=== PATIENT | female | born 1985 | race Two or more races ===

== ENCOUNTER 2016-06-12 16:04 | Inpatient (IN) | payer BC ==
[~2016-06-12] VITALS: Ht 157.5 cm; Wt 94.5 kg
[~2016-06-12 16:04] MED LIST: AMOX MC; NITR-58 PO; PREN1TAB17 PO; PREN1TAB9 PO
[2016-06-12] MEDS ORDERED: ONDANSETRON 4 MG INJ IV STA (16:25)
[2016-06-12] MEDS ORDERED: morphine 4 MG/ML VIAL IV STA (16:25)
[2016-06-12] MEDS ORDERED: ACETAMINOPHEN 500 MG TAB PO STA (16:25)
[2016-06-12] MEDS ORDERED: SOD CHLORIDE 0.9% 1,000 ML IV STA (16:25)
[2016-06-12 16:48] LABS: ADD UMIC YES; URINE BILIRUBIN (Dip) NEGATIVE (NEGATIVE); URINE BLOOD (Dip) 2+ (NEGATIVE); URINE COLOR LT. YELLOW (YELLOW); URINE GLUCOSE (Dip) NEGATIVE (NEGATIVE); URINE KETONES (Dip) NEGATIVE (NEGATIVE); URINE LEUKOCYTE ESTERASE (Dip) NEGATIVE (NEGATIVE); URINE NITRITE (Dip) NEGATIVE (NEGATIVE); URINE TOTAL PROTEIN (Dip) TRACE (NEGATIVE); URINE UROBILINOGEN (Dip) 0.2 E.U./dL (0.1-1.0)
[2016-06-12 17:02] LABS: MUCUS,URINE FEW; SQUAMOUS EPITHELIAL CELL,UR MODERATE; URINE RBCS 0-2 /HPF (0)
[2016-06-12 17:06] LABS: ADD SCAN DIFF NO
[2016-06-12 17:07] LABS: ABNORMAL IP MESSAGE 1; HEMATOCRIT 44.3 % (37.0-47.0); HEMOGLOBIN 15.3 g/dl (12.0-16.0); MEAN CORPUSCULAR HEMOGLOBIN 29.1 pg (29.0-33.0); MEAN CORPUSCULAR HGB CONC 34.5 g/dl (32.0-37.0); MEAN CORPUSCULAR VOLUME 84.2 fl (82.0-101.0); MEAN PLATELET VOLUME 11.4 fl (7.4-10.4); PLATELET COUNT 290 10^3/UL (140-415); RED BLOOD COUNT 5.26 10^6/ul (4.20-5.40); RED CELL DISTRIBUTION WIDTH 12.8 % (11.5-14.5)
[2016-06-12 17:18] LABS: ALBUMIN 4.5 g/dl (3.3-4.9)
[2016-06-12 17:19] LABS: POTASSIUM 4.4 mmol/L (3.5-5.1)
[2016-06-12 17:21] LABS: ALBUMIN/GLOBULIN RATIO 1.02; BILIRUBIN,INDIRECT 0.4 mg/dl (0-1.1); BILIRUBIN,TOTAL 0.4 mg/dl (0.2-1.3); CREATININE 0.66 mg/dl (0.44-1.00); TOTAL PROTEIN 8.9 g/dl (6.1-8.1)
[2016-06-12 17:22] LABS: CALCIUM 9.8 mg/dl (8.4-10.2)
--- NOTE | 2016-06-12 17:27 | ERD ---
ER Documentation Chief Complaint Date/Time DATE: 06/12/16 TIME: 17:25 Chief Complaint RIGHT SIDED AP WITH NAUSEA/VOMITING AND BACK PAIN X 1 WEEK HPI This is a 31-year-old female presenting to the emergency department complaining of severe right upper quadrant abdominal pain that radiates to the back since this morning, patient describes the pain as a twisting severe pain. Patient complains of nausea, with one episode of vomiting. She admits to having chills. She denies any diarrhea. Patient states that her last meal was at 1 PM however she vomited. Patient denies any medical problems or taking any other medications. She denies any abdominal surgeries. She states her last menstrual period was a couple weeks ago. Denies alcohol use. Denies any recent traveling. ROS All systems reviewed and are negative except as per history of present illness. Medications Home Meds Reported Medications Vits W-Ca,Fe,Fa(<1MG) ( #2) 1 Tab Tablet, 1 TAB PO DAILY 06/25/13 Amoxicillin Trihydrate (Amoxicillin Trihydrate) 100 Gm Powder, 100 GM MC Q6 06/25/13 Nitrofurantoin Monohyd Macrocr (Macrobid) 100 Mg Capsr, 100 MG PO BID 06/25/13 Vit-Iron Fumarate-FA ( Tablet) 1 Each Tablet, 1 EACH PO DAILY 01/02/13 Allergies Allergies: Coded Allergies: No Known Drug Allergies (Verified Allergy, Unknown, 06/12/16) Uncoded Allergies: BEEF (Allergy, Unknown, 06/12/16) SHRIMP (Allergy, Unknown, 06/12/16) PMhx/Soc History of Surgery: No Anesthesia Reaction: No Hx Neurological Disorder: No Hx Respiratory Disorders: No Hx Cardiac Disorders: No Hx Psychiatric Problems: No Hx Miscellaneous Medical Probl: No Hx Alcohol Use: No Hx Substance Use: No Hx Tobacco Use: No Smoking Status: Never smoker Physical Exam Vitals Vital Signs Date Time Temp Pulse Resp B/P Pulse Ox O2 Delivery O2 Flow Rate FiO2 06/12/16 16:09 100.0 104 20 123/77 100 Physical Exam GENERAL: well-developed/well-nourished, in no apparent distress, non-toxic appearing HENT: NC/AT, moist mucous membranes EYES: Conjunctiva normal NECK: Supple, no lymphadenopathy PULM: CTA bilaterally, no rales, rhonchi, or wheezing heard CV: Normal S1S2, RRR, good capillary refill GI: Soft, non-distended, tender to palpation right upper quadrant and epigastric region Normal bowel sounds, no masses or organomegaly felt on exam No gross peritonitis, no bruits Negative Rovsing, positive Ayers, negative McBurney's point, Negative CVAT BACK: No masses EXT: No clubbing, cyanosis, or edema NEURO: Alert and Orientated SKIN: Intact, normal turgor PSYCH: Normal mood and mentation Result Diagram: 06/12/16 1640 06/12/16 1640 Results 24 hrs Laboratory Tests Test 06/12/16 16:30 06/12/16 16:40 Urine Bilirubin NEGATIVE Urine Clarity CLEAR Urine Color LT. YELLOW Urine Glucose NEGATIVE% Urine Granular Casts RARE Urine Hemoglobin 2+ Urine Ketones NEGATIVE Urine Leukocyte Esterase NEGATIVE Urine Microscopic RBC 0-2/HPF Urine Microscopic WBC 0-2/HPF Urine Mucus FEW Urine Nitrite NEGATIVE Urine Specific [place] 1.025 Urine Squamous Epithelial Cells MODERATE Urine Total Protein TRACE Urine Urobilinogen 0.2 E.U./dL Urine pH 5.5 Alanine Aminotransferase (ALT/SGPT) 35IU/L Albumin 4.5g/dl Albumin/Globulin Ratio 1.02 Alkaline Phosphatase 117IU/L Anion Gap 20 Aspartate Amino Transf (AST/SGOT) 24IU/L Blood Urea Nitrogen 15mg/dl Calcium Level 9.8mg/dl Carbon Dioxide Level 26mmol/L Chloride Level 101mmol/L Creatinine 0.66mg/dl Direct Bilirubin 0.00mg/dl Globulin 4.40g/dl Glucose Level 98mg/dl Hematocrit 44.3% Hemoglobin 15.3g/dl Indirect Bilirubin 0.4mg/dl Lactic Acid Level 1.2mmol/L Lipase 96148V/L Mean Corpuscular Hemoglobin 29.1pg Mean Corpuscular Hemoglobin Concent 34.5g/dl Mean Corpuscular Volume 84.2fl Mean Platelet Volume 11.4fl Platelet Count 60913^3/UL Potassium Level 4.4mmol/L Red Blood Count 5.2610^6/ul Red Cell Distribution Width 12.8% Sodium Level 143mmol/L Total Bilirubin 0.4mg/dl Total Protein 8.9g/dl White Blood Count 17.010^3/ul Current Medications Medications (Trade) Dose Ordered Sig/Levon Route PRN Reason Start Time Stop Time Status Last Admin Dose Admin Sodium Chloride (NS) 1,000 ml @ 1,000 mls/hr Q1H STAT IV 06/12/16 16:25 06/12/16 17:24 DC 06/12/16 16:39 Morphine Sulfate (morphine) 6 mg ONCE STAT IV 06/12/16 16:25 06/12/16 16:28 DC 06/12/16 16:40 Ondansetron HCl (Zofran Inj) 8 mg ONCE STAT IV 06/12/16 16:25 06/12/16 16:28 DC 06/12/16 16:40 Acetaminophen (Tylenol Tab) 1,000 mg ONCE STAT PO 06/12/16 16:25 06/12/16 16:28 DC 06/12/16 16:39 Hydromorphone HCl 2 mg 2 mg ONCE STAT IV 06/12/16 18:13 06/12/16 18:15 DC Sodium Chloride (NS) 1,000 ml @ 1,000 mls/hr Q1H ONCE IV 06/12/16 18:30 06/12/16 19:29 Hydromorphone HCl (Dilaudid) 0.5 mg ONCE STAT IV 06/12/16 18:15 06/12/16 18:17 DC Procedures/MDM This is a 31-year-old female presenting to the emergency department complaining of severe right upper quadrant abdominal pain that radiates to the back, nausea with one episode of vomiting since this morning due to acute pancreatitis. On examination patient was very tender and she had a temperature of 100.0. IV access was established. CBC showed a white count of 17 likely due to stress reaction versus an infectious cause. CMP did not show any liver or renal abnormalities. Lipase is elevated at 38,681 signifying that patient has pancreatitis. A gallbladder ultrasound was done and did not show any evidence of cholelithiasis or cholecystitis. Patient was given 1000 mg of Tylenol, 6 mg of morphine and 8 mg Zofran and I have reassessed her. Patient still had significant pain. Patient has stable vital signs. Patient is appropriate for admission for further evaluation and management. I consulted my supervising physician Dr. Brady who contacted hospitalist and further manage patient until admission. Please review Dr. Brady's note for further information. Departure Diagnosis: Primary Impression: Pancreatitis Condition: Serious PAULINE SALAZAR PA-C 1, 2017 17:27
--- NOTE | 2016-06-12 17:29 | RADRPT ---
PROCEDURE: Abdominal Ultrasound (right upper quadrant). CLINICAL INDICATION: Abdominal pain TECHNIQUE: Multiple real-time longitudinal and transverse images of the right upper quadrant of th e abdomen were acquired utilizing a curved array transducer. Images were reviewed on a high-resoluti on PACS workstation. COMPARISON: None FINDINGS: The liver is normal in size and echogenicity. The portal vein is patent. No focal masses are identi fied. There is no evidence of intra or extrahepatic ductal dilatation. The common bile duct measur es 3.2 mm in diameter. No gallstones or gallbladder wall thickening is seen. The visualized portions of the pancreas are unremarkable with obscuration of the tail of the pancrea s. No free fluid is identified. There is no evidence of right hydronephrosis or renal calcification. The right kidney measures 9.2 cm in length. The visualized portions of the aorta and inferior vena cava are within normal limits. IMPRESSION: 1. Unremarkable right upper quadrant ultrasound. RPTAT: HJBF .Cisco Vidal MD, MD Date Time Electronically viewed and signed by .Cisco Vidal MD, MD on 06/12/2016 17:29 .B/
[2016-06-12] MEDS ORDERED: HYDROmorphONE 2 MG/ML SYG IV STA (18:13)
[2016-06-12] MEDS ORDERED: HYDROmorphONE 1 MG/ML SYG IV STA (18:15)
[2016-06-12] MEDS ORDERED: SOD CHLORIDE 0.9% 1,000 ML IV ONE (18:30)
[2016-06-12 18:43] LABS: EOSINOPHILS # 0.3 10^3/ul (0.0-0.5); LYMPHOCYTES # 1.7 10^3/ul (0.8-2.9); MONOCYTE # 1.2 10^3/ul (0.3-0.9); NEUTROPHIL # 13.4 10^3/ul (1.6-7.5)
[2016-06-12 18:46] LABS: ANISOCYTOSIS OCCASIONAL; PLATELET ESTIMATE PLT APPEAR ADEQUATE
[2016-06-12 19:48] VITALS: TEMP 98
--- NOTE | 2016-06-12 19:57 | RADRPT ---
PROCEDURE: CT Abdomen and Pelvis without contrast. CLINICAL INDICATION: Pancreatitis TECHNIQUE: CT scan of the abdomen and pelvis without contrast was performed on a multidetector hig h-resolution CT scanner. The patient was scanned without intravenous contrast. No oral contrast was administered. Coronal and sagittal reformatted images were obtained from the axial source images. Im ages were reviewed on a high-resolution PACS workstation. The total exam CTDI equals 20.06 mGy and the total exam DLP equals 1250.33 mGy-cm. One or more of the following dose reduction techniques were used: - Automated exposure control. - Adjustment of the mA and/or kV according to patient size. - Use of iterative reconstruction technique. COMPARISON: Right upper quadrant abdominal ultrasound of 06/12/2016 FINDINGS: Lungs: Dependent atelectasis is seen in the posterior lower lungs. Small calcified granuloma in ri ght lower lung lobe. Liver: Small calcified granulomas in liver Gallbladder: No abnormality seen. Spleen: No abnormality seen. Stomach: The stomach is not fully distended. No gross abnormality seen. Pancreas: No abnormality seen in the unopacified pancreas. Adrenals: No abnormality seen. Kidneys: Appearance of 1 mm nonobstructing calcification in mid right kidney. No abnormality seen in the left kidney. Abdominal aorta: No aneurysm seen. Lymph nodes: No enlarged lymph nodes are seen. Small bowel: No dilated small bowel loops are seen. Colon: No abnormality seen. Appendix: No abnormality seen. Bladder: No abnormality seen Pelvic organs: No abnormality seen Ascites: None seen. Osseous structures: Likely small bone island in right femoral head. Minimal degenerative changes a t sacroiliac joints. IMPRESSION: No acute abnormality seen as noted above. Appearance of 1 mm nonobstructing calcification in mid ri ght kidney. Please see above. RPTAT: HJES .Uvaldo Loaiza MD, MD Date Time Electronically viewed and signed by .Uvaldo Loaiza MD, MD on 06/12/2016 19:57 .S/
[2016-06-12] MEDS ORDERED: ACETAMINOPHEN 325 MG TAB PO PRN (20:00)
[2016-06-12] MEDS ORDERED: ONDANSETRON 4 MG INJ IV PRN ×2 (20:00→23:00)
[2016-06-12 21:00] VITALS: Ht 157.5 cm; Wt 94.5 kg
[2016-06-12] MEDS ORDERED: KETOROLAC 15 MG INJ IV PRN (23:00)
[2016-06-12] MEDS: DEXTROSE 5%-0.45% NACL 1,000 ML IV SCH (23:21)
[2016-06-13] MEDS: morphine 4 MG/ML VIAL IV PRN ×2 (03:31→08:25)
[2016-06-13 05:06] LABS: ADD SCAN DIFF NO
[2016-06-13 05:35] LABS: BASOPHILS % 0.3 % (0.0-2.0); EOSINOPHILS # 1.1 10^3/ul (0.0-0.5); EOSINOPHILS % 9.9 % (0.0-7.0); HEMATOCRIT 37.7 % (37.0-47.0); HEMOGLOBIN 12.7 g/dl (12.0-16.0); LYMPHOCYTES # 3.1 10^3/ul (0.8-2.9); LYMPHOCYTES % 27.8 % (15.0-51.0); MEAN CORPUSCULAR HEMOGLOBIN 29.1 pg (29.0-33.0); MEAN CORPUSCULAR HGB CONC 33.7 g/dl (32.0-37.0); MEAN CORPUSCULAR VOLUME 86.3 fl (82.0-101.0); MEAN PLATELET VOLUME 11.3 fl (7.4-10.4); MONOCYTE # 0.8 10^3/ul (0.3-0.9); MONOCYTES % 7.1 % (0.0-11.0); NEUTROPHILS % 54.6 % (39.0-77.0); PLATELET COUNT 232 10^3/UL (140-415); RED BLOOD COUNT 4.37 10^6/ul (4.20-5.40); RED CELL DISTRIBUTION WIDTH 13.2 % (11.5-14.5)
[2016-06-13 05:36] LABS: ALBUMIN 3.3 g/dl (3.3-4.9)
[2016-06-13 05:39] LABS: ALBUMIN/GLOBULIN RATIO 0.89; BILIRUBIN,INDIRECT 0.3 mg/dl (0-1.1); BILIRUBIN,TOTAL 0.3 mg/dl (0.2-1.3); CREATININE 0.49 mg/dl (0.44-1.00)
[2016-06-13 05:40] LABS: CALCIUM 7.9 mg/dl (8.4-10.2); MAGNESIUM 2.2 mg/dl (1.7-2.5); PHOSPHORUS 2.7 mg/dl (2.5-4.9)
--- NOTE | 2016-06-13 08:00 | HP ---
DATE OF ADMISSION: 06/12/2016 TIME SEEN: 2300. CHIEF COMPLAINT: Abdominal pain. HISTORY OF PRESENT ILLNESS: The patient is a 31-year-old obese female with no significant past medi luis fernando history who presented to the emergency department with a chief complaint of abdominal pain. The pain is mainly located in the right upper quadrant area with radiation to her back. She also repor svitlana associated nonbilious, nonbloody emesis. Her symptoms have been going on for several days and h ave been progressively getting worse. She stated abdominal pain is worse with p.o. intake. When she presented to the ER, she had a white count of 17,000 and a lipase of almost 39,000. She morton d a low-grade fever with a temperature of 100, tachycardic with a heart rate of 104. Otherwise, the rest of her vitals were within acceptable range. Right upper quadrant ultrasound was unremarkable. A CT abdomen and pelvis without contrast shows no acute abnormality except an appearance of 1 mm n onobstructing calcification in the mid right kidney. She has been given pain medication, antiemetic s, and IV fluid and admitted for further treatment. REVIEW OF SYSTEMS: A 12-point review was performed, negative except as mentioned in HPI. PAST MEDICAL HISTORY: As per HPI. PAST SURGICAL HISTORY: D and C (dilatation and curettage). SOCIAL HISTORY: No history of tobacco, alcohol, or illicit drug use. ALLERGIES: SHRIMP, BEEF. HOME MEDICATIONS: None. PHYSICAL EXAMINATION: VITAL SIGNS: Blood pressure 104/57, heart rate 103, respiratory rate 16, temperature 98, oxygen sat uration 100% on room air. GENERAL: White female lying in bed in no acute distress, answering questions appropriately, able to speak in full sentences. HEENT: No obvious head deformity. Pupils are reactive to light. Extraocular muscles intact. CARDIOVASCULAR: Bradycardic with regular rhythm. LUNGS: Clear. ABDOMEN: Soft. There is tenderness to palpation in the right upper quadrant area as well as the pe riumbilical area with no guarding, no rigidity. EXTREMITIES: No edema. NEUROLOGIC: No focal deficit. LABORATORY: Pertinent positive results as mentioned in the HPI. IMAGING: Right upper quadrant ultrasound and CT abdomen and pelvis without contrast with results as mentioned in the HPI. IMPRESSION: 1. Acute pancreatitis, unknown etiology. 2. Abdominal pain, secondary to above. 3. Sepsis, as evidenced by leukocytosis and tachycardia, secondary to acute pancreatitis. 4. Obesity with a BMI of 38. PLAN: We will keep n.p.o. with IV fluid. We will provide pain medication and antiemetics as needed . We will consider starting her on antibiotics if no improvement in her symptoms or if there is a l aboratory abnormality or if she becomes febrile. Will check fasting lipids to see if elevated trigl ycerides is the etiology of her pancreatitis. Note that abdominal ultrasound and CT scan without an y biliary tree/gallbladder abnormality, and she does not drink alcohol. If her triglyceride level i s within normal limits, we will consider checking her IgG type 4 to see if autoimmune pancreatitis i s a possible etiology. This can also be done as an outpatient. Further workup and management per clinical course. Dictated By: MARCEL CELAYA/OLIVA Conf#: [id number] DID#: [id number]
[2016-06-13 08:12] VITALS: BP 112/58; PULSE 87; RESP 18
[2016-06-13] MEDS: FAMOTIDINE 20 MG INJ IV SCH ×2 (08:22→20:20)
[2016-06-13] MEDS: DEXTROSE 5%-0.45% NACL 1,000 ML IV SCH ×2 (08:22→18:57)
--- NOTE | 2016-06-13 15:18 | PN ---
Date/Time of Note Date/Time of Note DATE: 06/13/16 TIME: 15:12 Assessment/Plan VTE Prophylaxis VTE Prophylaxis Intervention: SCD's Lines/Catheters IV Catheter Type (from Nrsg): Peripheral IV Assessment/Plan Chief Complaint/Hosp Course 1. Acute pancreatitis- Idiopathic at this time -MRCP to further eval -GI consult 2. SIRS likely 05/16 #1-Improved -monitor 3. Obesity with a BMI of 38 -Advise Lifestyle changes PPx- SCD's Problems: Subjective 24 Hr Interval Summary Gastrointestinal: pain Exam/Review of Systems Vital Signs Vitals Vital Signs Date Time Temp Pulse Resp B/P Pulse Ox O2 Delivery O2 Flow Rate FiO2 06/13/16 08:12 97.6 87 18 112/58 100 Room Air Intake and Output 06/12/16 06/12/16 06/13/16 15:00 23:00 07:00 Intake Total 1000 ml 650 ml Balance 1000 ml 650 ml Exam Constitutional: alert, oriented Respiratory: clear to auscultation Cardiovascular: regular rate and rhythm Gastrointestinal: soft, tender, No distended Musculoskeletal: nl extremities to inspection Results Result Diagram: 06/13/16 0435 06/13/16 0435 Results 24 hrs Laboratory Tests Test 06/12/16 16:30 06/12/16 16:40 06/13/16 04:35 Urine Bilirubin NEGATIVE Urine Clarity CLEAR Urine Color LT. YELLOW Urine Glucose NEGATIVE Urine Granular Casts RARE Urine Hemoglobin 2+ H Urine Ketones NEGATIVE Urine Leukocyte Esterase NEGATIVE Urine Microscopic RBC 0-2 Urine Microscopic WBC 0-2 Urine Mucus FEW Urine Nitrite NEGATIVE Urine Specific [place] 1.025 Urine Squamous Epithelial Cells MODERATE Urine Total Protein TRACE Urine Urobilinogen 0.2 E.U./dL Urine pH 5.5 Alanine Aminotransferase (ALT/SGPT) 35 34 Albumin 4.5 3.3 # Albumin/Globulin Ratio 1.02 0.89 Alkaline Phosphatase 117 74 Anion Gap 20 H 15 Anisocytosis OCCASIONAL Aspartate Amino Transf (AST/SGOT) 24 15 Band Neutrophils % 2.0 Beta HCG, Quantitative < 2.4 Blood Urea Nitrogen 15 12 Calcium Level 9.8 7.9 L Carbon Dioxide Level 26 25 Chloride Level 101 107 Creatinine 0.66 0.49 Direct Bilirubin 0.00 0.00 Eosinophils # 0.3 1.1 H Eosinophils % 2.0 9.9 H Globulin 4.40 H 3.70 H Glucose Level 98 108 Hematocrit 44.3 37.7 Hemoglobin 15.3 12.7 Indirect Bilirubin 0.4 0.3 Lactic Acid Level 1.2 Lipase 32708 H Lymphocytes # 1.7 3.1 H Lymphocytes % 10.0 L 27.8 Mean Corpuscular Hemoglobin 29.1 29.1 Mean Corpuscular Hemoglobin Concent 34.5 33.7 Mean Corpuscular Volume 84.2 86.3 Mean Platelet Volume 11.4 H 11.3 H Monocytes # 1.2 H 0.8 Monocytes % 7.0 7.1 Neutrophils # 13.4 H 6.0 Neutrophils % 79.0 H 54.6 Platelet Count 290 232 Platelet Estimate PLT APPEAR ADEQUATE Potassium Level 4.4 4.0 Red Blood Count 5.26 4.37 Red Cell Distribution Width 12.8 13.2 Sodium Level 143 143 Total Bilirubin 0.4 0.3 Total Protein 8.9 H 7.0 # White Blood Count 17.0 #H 11.0 #H Basophils # 0.0 Basophils % 0.3 Cholesterol Level 160 Cholesterol/HDL Ratio 5.0 HDL Cholesterol 32 L LDL Cholesterol, Calculated 111 Magnesium Level 2.2 Nucleated Red Blood Cells # 0.0 Nucleated Red Blood Cells % 0.0 Phosphorus Level 2.7 Triglycerides Level 86 Medications Medications Current Medications Ketorolac Tromethamine (Toradol) 15 mg Q6H PRN IV PAIN Last administered on 06/13 12:03; Admin Dose 15 MG; Start 06/12/16 at 23:00; Stop 06/15/16 at 22:59 Famotidine (Pepcid Iv) 20 mg BID IV Last administered on 06/13/16 08:22; Admin Dose 20 MG; Start 06/13/16 at 09:00 Ondansetron HCl (Zofran Inj) 4 mg Q6H PRN IV NAUSEA AND/OR VOMITING; Start 06/12 at 23:00 Morphine Sulfate 4 mg 4 mg Q4H PRN IV pain management Last administered on 08:25; Admin Dose 4 MG; Start 06/12/16 at 23:00 Dextrose/Sodium Chloride (D5-1/2ns) 1,000 ml @ 100 mls/hr Q10H IV Last administered on 06/13/16 08:22; Admin Dose 100 MLS/HR; Start 06/12/16 at 23:00 SONIA NIEVES 2, 2017 15:18
--- NOTE | 2016-06-13 17:25 | RADRPT ---
PROCEDURE: MRCP. CLINICAL INDICATION: Abdominal pain, pancreatitis, evaluate for biliary stone. TECHNIQUE: MRCP was performed. Patient was examined without contrast. 3-D coronal rotating MIP i mages of the biliary tree are available for review. COMPARISON: CT and ultrasound, 06/12/2016 FINDINGS: The gallbladder is unremarkable. No gallstone, gallbladder wall thickening or pericholecystic fluid is identified. There is no intra or extrahepatic biliary dilatation. No common duct stone, strict ure or filling defect is identified. Pancreatic duct is normal in caliber. There is mild peripancreatic inflammation/edema, consistent with acute pancreatitis. No evidence of focal pancreatic mass lesion is identified. Liver, spleen, adrenal glands and kidneys are unremark able. There is no obstructive uropathy. The stomach is grossly unremarkable. Abdominal aorta is n ormal in caliber. No retroperitoneal or susi hepatis lymphadenopathy is identified. There is no b owel obstruction, abscess or ascites. The surrounding osseous structures are unremarkable. IMPRESSION: 1. Findings compatible with mild acute pancreatitis, as above. 2. No cholelithiasis, cholecystitis, biliary dilatation, or choledocholithiasis is identified. RPTAT: TT .Rajinder Broussard MD, MD Date Time Electronically viewed and signed by .Rajinder Broussard MD, MD on 06/13/2016 17:24 .R/
--- NOTE | 2016-06-13 19:44 | CONS ---
Date/Time of Note Date/Time of Note DATE: 06/13/16 TIME: 19:37 Assessment/Plan Assessment/Plan Additional Assessment/Plan Acute pancreatitis * MRCP negative for biliary obstruction * Continue pain and nausea management * N.p.o. * Trend labs Obesity with a BMI of 38 * Encourage lifestyle changes Further recommendations depend on clinical course Patient seen in collaboration with Dr. Brooks Consultation Date/Type/Reason Admit Date/Time Jun 12, 2016 at 19:44 Type of Consultation: Gastroenterology Reason for Consultation Pancreatitis Hx of Present Illness 31-year-old woman that presents to the ED with reports of worsening abdominal pain and nonbloody bilious vomiting for the last 2 weeks. Patient states symptoms began to worsen over the last 2 days. She reports previous episode early April that resolved after a few days. Patient denies fever,chills, diarrhea, sick contacts, EtOH use, new medications, high cholesterol, recent , and history of gallstones. Patient states that the pain has now migrated from epigastrium to left lower quadrant. At bedside reports abdominal pain improving with medication and no reports of nausea or vomiting today. MRCP completed and no evidence of cholelithiasis or choledocholithiasis. Gastrointestinal: pain Social History Smoking Status: Never smoker Exam/Review of Systems Vital Signs Vitals Vital Signs Date Time Temp Pulse Resp B/P Pulse Ox O2 Delivery O2 Flow Rate FiO2 06/13/16 08:12 97.6 87 18 112/58 100 Room Air Intake and Output 06/12/16 06/12/16 06/13/16 15:00 23:00 07:00 Intake Total 1000 ml 650 ml Balance 1000 ml 650 ml Exam Constitutional: alert, obese, oriented, well developed Psych: nl mood/affect Head: normocephalic Eyes: EOMI, nl conjunctiva, nl lids ENMT: nl external ears & nose, nl lips & teeth, nl nasal mucosa & septum Respiratory: normal air movement Cardiovascular: regular rate and rhythm Gastrointestinal: soft, tender (Left lower quadrant) Musculoskeletal: nl extremities to inspection Neurological: [employer]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 Results Result Diagram: 06/13/16 0435 06/13/16 0435 Results 24 hrs Laboratory Tests Test 06/13/16 04:35 Alanine Aminotransferase (ALT/SGPT) 34 Albumin 3.3 # Albumin/Globulin Ratio 0.89 Alkaline Phosphatase 74 Anion Gap 15 Aspartate Amino Transf (AST/SGOT) 15 Basophils # 0.0 Basophils % 0.3 Blood Urea Nitrogen 12 CA 19-9 Antigen 5.4 Calcium Level 7.9 L Carbon Dioxide Level 25 Chloride Level 107 Cholesterol Level 160 Cholesterol/HDL Ratio 5.0 Creatinine 0.49 Direct Bilirubin 0.00 Eosinophils # 1.1 H Eosinophils % 9.9 H Globulin 3.70 H Glucose Level 108 HDL Cholesterol 32 L Hematocrit 37.7 Hemoglobin 12.7 Indirect Bilirubin 0.3 LDL Cholesterol, Calculated 111 Lipase Lymphocytes # 3.1 H Lymphocytes % 27.8 Magnesium Level 2.2 Mean Corpuscular Hemoglobin 29.1 Mean Corpuscular Hemoglobin Concent 33.7 Mean Corpuscular Volume 86.3 Mean Platelet Volume 11.3 H Monocytes # 0.8 Monocytes % 7.1 Neutrophils # 6.0 Neutrophils % 54.6 Nucleated Red Blood Cells # 0.0 Nucleated Red Blood Cells % 0.0 Phosphorus Level 2.7 Platelet Count 232 Potassium Level 4.0 Red Blood Count 4.37 Red Cell Distribution Width 13.2 Sodium Level 143 Total Bilirubin 0.3 Total Protein 7.0 # Triglycerides Level 86 White Blood Count 11.0 #H Medications Medications Current Medications Ketorolac Tromethamine (Toradol) 15 mg Q6H PRN IV PAIN Last administered on 06/13 12:03; Admin Dose 15 MG; Start 06/12/16 at 23:00; Stop 06/15/16 at 22:59 Famotidine (Pepcid Iv) 20 mg BID IV Last administered on 06/13/16 08:22; Admin Dose 20 MG; Start 06/13/16 at 09:00 Ondansetron HCl (Zofran Inj) 4 mg Q6H PRN IV NAUSEA AND/OR VOMITING; Start 06/12 at 23:00 Morphine Sulfate 4 mg 4 mg Q4H PRN IV pain management Last administered on 08:25; Admin Dose 4 MG; Start 06/12/16 at 23:00 Dextrose/Sodium Chloride (D5-1/2ns) 1,000 ml @ 100 mls/hr Q10H IV Last administered on 06/13/16 18:57; Admin Dose 100 MLS/HR; Start 06/12/16 at 23:00 ALEC BRANCH Jun 13, 2016 19:43
[2016-06-14 04:57] LABS: ADD SCAN DIFF NO
[2016-06-14] MEDS: DEXTROSE 5%-0.45% NACL 1,000 ML IV SCH ×2 (05:01→15:00)
[2016-06-14 05:12] LABS: BASOPHILS % 0.3 % (0.0-2.0); EOSINOPHILS % 9.7 % (0.0-7.0); HEMATOCRIT 36.6 % (37.0-47.0); HEMOGLOBIN 12.4 g/dl (12.0-16.0); LYMPHOCYTES # 3.1 10^3/ul (0.8-2.9); MEAN CORPUSCULAR HEMOGLOBIN 28.8 pg (29.0-33.0); MEAN CORPUSCULAR HGB CONC 33.9 g/dl (32.0-37.0); MEAN CORPUSCULAR VOLUME 85.1 fl (82.0-101.0); MEAN PLATELET VOLUME 11.3 fl (7.4-10.4); MONOCYTE # 0.5 10^3/ul (0.3-0.9); MONOCYTES % 5.4 % (0.0-11.0); NEUTROPHIL # 5.4 10^3/ul (1.6-7.5); NEUTROPHILS % 53.4 % (39.0-77.0); PLATELET COUNT 221 10^3/UL (140-415); RED CELL DISTRIBUTION WIDTH 13.2 % (11.5-14.5); WHITE BLOOD COUNT 10.1 10^3/ul (4.8-10.8)
[2016-06-14 05:25] LABS: ALBUMIN 3.3 g/dl (3.3-4.9)
[2016-06-14 05:26] LABS: POTASSIUM 3.7 mmol/L (3.5-5.1)
[2016-06-14 05:28] LABS: ALBUMIN/GLOBULIN RATIO 0.86; BILIRUBIN,INDIRECT 0.3 mg/dl (0-1.1); BILIRUBIN,TOTAL 0.3 mg/dl (0.2-1.3); CREATININE 0.55 mg/dl (0.44-1.00); TOTAL PROTEIN 7.1 g/dl (6.1-8.1)
[2016-06-14 05:29] LABS: CALCIUM 8.4 mg/dl (8.4-10.2)
[2016-06-14 08:35] VITALS: BP 111/59; RESP 17
[2016-06-14] MEDS: FAMOTIDINE 20 MG INJ IV SCH (08:50)
--- NOTE | 2016-06-14 11:42 | PDOCDIS ---
Discharge Instructions CONDITION Patient Condition: Good HOME CARE INSTRUCTIONS: Diet Instructions: Reduced Calorie ACTIVITY: Activity Restrictions: No Restrictions FOLLOW UP/APPOINTMENTS Appointments F/U WITH A PCP SONIA NIEVES Jun 14, 2016 11:42
--- NOTE | 2016-06-14 18:02 | DS ---
DATE OF ADMISSION: 06/12/2016 DATE OF DISCHARGE: 06/14/2016 DISCHARGE DIAGNOSES: 1. Pancreatitis, etiology is idiopathic. Workup was negative with normal triglycerides. MRCP was negative. No history of alcohol abuse. The patient now tolerating a diet. 2. Obesity. Weight loss was advised. 3. Systemic inflammatory response syndrome secondary to pancreatitis, now resolved. HOSPITAL COURSE: The patient is a 31-year-old female with history of obesity, otherwise no signific ant medical history. The patient presented with abdominal pain. She was found to have acute pancre atitis. She has no history of alcohol abuse. She had a gallbladder ultrasound that was unremarkabl e. She had an MRCP that showed acute pancreatitis, but otherwise no cholelithiasis, cholecystitis o r choledocholithiasis. She was seen by GI. The patient's LFTs were within normal limits. Her lipa se did come down to within normal limits. She was able to tolerate a p.o. diet. She was felt to be stable for discharge. On the day of discharge, the patient's vitals, labs, physical exam were stab le. She had no acute complaints. Questions were answered. CONDITION ON DISCHARGE: Stable. DISPOSITION: Home. MEDICATIONS: No medications prescribed. The patient is to continue taking her multivitamins. The patient was told to stop taking her antibiotics as there is no indication for them. FOLLOWUP: The patient to follow up with her PCP in 1 to 2 weeks. Greater than 30 minutes was spent coordinating discharge of the patient. Dictated By: SONIA NIEVES MD BS/OLIVA Conf#: [id number] DID#: [id number]
== END 2016-06-14 15:03 | disposition home or self-care (01) | DRG 440 ==
LOC: FTE 16:04 → PP2 19:44
PROVIDERS: ADMIT Internal Medicine; ATTEND Internal Medicine
DX: K85.00 Idiopathic acute pancreatitis without necrosis or infection (principal); E66.9 Obesity, unspecified; Z68.38 Body mass index [BMI] 38.0-38.9, adult
CPT/HCPCS: 36415; 74176; 74181; 76705; 80053; 80061; 81001; 81003; 83605; 83690; 83735; 84100; 84702; 85025; 86301; 87040; 96361; 96374; 96375; J1170; J1885; J2270; J2405; J7030; J7042

== ENCOUNTER 2016-06-19 21:19 | Emergency (ER) | payer BC ==
[~2016-06-19] VITALS: Ht 154.9 cm; Wt 93.0 kg
[~2016-06-19 21:19] MED LIST changes: -AMOX MC; -NITR-58 PO
[2016-06-19 22:05] VITALS: Ht 154.9 cm; Wt 93.0 kg
[2016-06-19] MEDS ORDERED: ACETAMINOPHEN 500 MG TAB PO STA (23:30)
[2016-06-19] MEDS ORDERED: AMOXICILLIN 500 MG CAP PO STA (23:30)
[2016-06-19] MEDS ORDERED: ACET325T33 PO (23:36)
[2016-06-19] MEDS ORDERED: AMO500 PO (23:36)
--- NOTE | 2016-06-19 23:43 | ERD ---
ER Documentation Chief Complaint Date/Time DATE: 06/19/16 TIME: 23:41 Chief Complaint Bilateral ear pain Radiating to the left neck HPI This is a 31-year-old female present to the emergency department complaining of cough, bilateral ear pain and few fevers past couple days. Patient states that she took ibuprofen today at lunch without any relief. Patient denies any shortness of breath or chest pain. Patient rates the pain moderate in severity seen at the left is greater than the right ROS All systems reviewed and are negative except as per history of present illness. Medications Home Meds Active Scripts Acetaminophen* (Tylenol*) 325 Mg Tablet, 2 TAB PO Q4 Y for PAIN AND OR ELEVATED TEMP, #20 TAB Prov:PAULINE SALAZAR PA-C 06/19/16 Amoxicillin* (Amoxicillin*) 500 Mg Cap, 500 MG PO BID for 10 Days, CAP Prov:PAULINE SALAZAR PA-C 06/19/16 Reported Medications Vits W-Ca,Fe,Fa(<1MG) ( #2) 1 Tab Tablet, 1 TAB PO DAILY 06/25/13 Vit-Iron Fumarate-FA ( Tablet) 1 Each Tablet, 1 EACH PO DAILY 01/02/13 Discontinued Reported Medications Amoxicillin Trihydrate (Amoxicillin Trihydrate) 100 Gm Powder, 100 GM MC Q6 06/25/13 Nitrofurantoin Monohyd Macrocr (Macrobid) 100 Mg Capsr, 100 MG PO BID 06/25/13 Allergies Allergies: Coded Allergies: No Known Drug Allergies (Verified Allergy, Unknown, 06/12/16) Uncoded Allergies: Shrimp, Beef (Allergy, Severe, Severe Rash, 06/12/16) no pork BEEF (Allergy, Unknown, 06/12/16) SHRIMP (Allergy, Unknown, 06/12/16) PMhx/Soc Medical and Surgical Hx: pt denies Medical Hx, pt denies Surgical Hx History of Surgery: No Anesthesia Reaction: No (unknown) Hx Neurological Disorder: No Hx Respiratory Disorders: No Hx Cardiac Disorders: No Hx Psychiatric Problems: No Hx Miscellaneous Medical Probl: No Hx Alcohol Use: No (never) Hx Substance Use: No (never) Hx Tobacco Use: No (never) Smoking Status: Never smoker Physical Exam Vitals Vital Signs Date Time Temp Pulse Resp B/P Pulse Ox O2 Delivery O2 Flow Rate FiO2 06/19/16 22:05 100.1 97 18 130/70 100 Physical Exam GENERAL: well-developed/well-nourished, in no apparent distress, non-toxic appearing HEAD: NC/AT, no swelling noted in frontal or maxillary areas EARS: bilateral tympanic membrane is erythematous with bulging TM NARES: nares patent, rhinorrhea and congested THROAT: oropharynx erythematous without exudates, no tonsil enlargement, post nasal drip EYES: Conjunctiva normal NECK: Supple, no lymphadenopathy PULM: CTA bilaterally, no rales, rhonchi, or wheezing heard CV: Normal S1S2, RRR, good capillary refill GI: Soft, non-distended, normal bowel sounds, non-tender BACK: No midline tenderness, no masses EXT No clubbing, cyanosis, or edema NEURO: Alert and Orientated SKIN: Intact, normal turgor PSYCH: Normal mood and mentation Results 24 hrs Current Medications Medications (Trade) Dose Ordered Sig/Levon Route PRN Reason Start Time Stop Time Status Last Admin Dose Admin Acetaminophen (Tylenol Tab) 1,000 mg ONCE STAT PO 06/19/16 23:30 06/19/16 23:31 DC Amoxicillin (Amoxicillin) 500 mg ONCE STAT PO 06/19/16 23:30 06/19/16 23:31 DC Procedures/MDM 31-year-old female presents to the ER with bilateral ear pain and symptoms of a upper respiratory infection. On examination, there was bulging of the tympanic membrane. Symptoms consistent with acute otitis media bilaterally, left is greater than right. Patient was mildly febrile with 100.1 and she was given Tylenol which trended downward. First dose of amoxicillin was given in the ED. Differentials included otitis externa, myringitis, mastoiditis, cholesteatoma, and tympanic membrane perforation. Patient was given medications in the ER, fever trended downwards and table for discharge. DISPOSITION: hemodynamically stable. Prescription for Amoxicillin, tylenol was given to patient. Discussed to return to the ED for worsening condition or not improving as expected. Patient's guardian agreed and understood with this plan Departure Diagnosis: Primary Impression: Otitis media Otitis media type: unspecified Laterality: bilateral Chronicity: unspecified Qualified Code: H66.93 - Bilateral otitis media, unspecified chronicity, unspecified otitis media type Additional Impression: Fever Condition: Stable Patient Instructions: Fever Control (Adult), Otitis Media, Abx Tx (Adult) Additional Instructions: FOLLOW UP WITH YOUR PRIMARY CARE PHYSICIAN TOMORROW.Return to this facility if you are not improving as expected. Take all medicines as directed. Return to this facility if you are not improving as expected. PAULINE SALAZAR PA-C Jun 19, 2016 23:43
[2016-06-20 00:15] VITALS: BP 135/72; PULSE 98; RESP 18; TEMP 100.3
== END 2016-06-20 00:16 | disposition home or self-care (01) ==
LOC: FTE 21:19
DX: H66.93 Otitis media, unspecified, bilateral (principal); R50.9 Fever, unspecified
CPT/HCPCS: 99283; Z7610

== ENCOUNTER 2017-07-04 08:38 | Outpatient (CLI) | END 2017-07-04 10:54 | disposition home or self-care (01) ==

== ENCOUNTER 2017-08-07 08:23 | Inpatient (IN) | END 2017-08-10 16:45 | disposition home or self-care (01) | DRG 775 ==